=== PATIENT | female | born 1970 | race Asian ===

== ENCOUNTER 2018-01-22 08:49 | Outpatient (CLI) | payer OTHER, SELFPAY ==
--- NOTE | 2018-01-22 10:39 | MMO ---
BILATERAL DIGITAL SCREENING MAMMOGRAMS: History: 47-year-old female presents for digital screening mammography. Comparison: 10-11-12, 02-17-09 FINDINGS: This study is interpreted with the assistance of computer aided detection. The breasts are heterogeneously dense which can obscure small masses. There are a few typically benig n microcalcifications which are stable. No evidence of malignancy. IMPRESSION: BIRADS category 2 - benign findings. Continue routine screening. POS: KOBI
== END 2018-01-22 08:50 | disposition home or self-care (01) ==
LOC: SCSMAMMO 08:49
PROVIDERS: ATTEND Family Medicine
DX: Z12.31 Encounter for screening mammogram for malignant neoplasm of breast (principal)
CPT/HCPCS: 77067

== ENCOUNTER 2019-04-16 09:51 | Outpatient (CLI) | payer OTHER ==
--- NOTE | 2019-04-16 11:33 | ULT ---
ULTRASOUND ABDOMEN COMPLETE: HISTORY: 49-year-old female with right upper quadrant abdominal pain. FINDINGS: The gallbladder has normal wall thickness and has no evidence of gallstones or sludge. The hepatic ec hogenicity is normal. The kidneys have normal echogenicity, and there is no hydronephrosis. There is no splenomegaly. There is no abdominal aortic aneurysm. No free fluid is identified. The inferior ve na cava is visualized. The pancreas is visualized, although ultrasound is relatively insensitive for pancreatic pathology compared to CT and MRI. There is no biliary dilation. The common duct caliber is 2 mm. IMPRESSION: Normal. jn [] POS: CET
== END 2019-04-16 09:52 | disposition home or self-care (01) ==
LOC: SCSULT 09:51
PROVIDERS: ATTEND Family Medicine
DX: R10.13 Epigastric pain (principal); R10.83 Colic
CPT/HCPCS: 93975